=== PATIENT | male | born 2000 | race Caucasian/White ===

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

== ENCOUNTER 2019-04-19 01:44 | Emergency (ER) | payer OTHER, SELFPAY | END 2019-04-19 03:09 | disposition home or self-care (01) | LOC: ERS 01:44 | DX: L60.0 Ingrowing nail (principal); F17.220 Nicotine dependence, chewing tobacco, uncomplicated | CPT/HCPCS: 99281 ==

== ENCOUNTER 2025-06-14 10:37 | Emergency (ER) | payer SELFPAY ==
[2025-06-14 11:00] LABS: Bacteria/HPF None Seen HPF (None Seen); CAUTI Indications for Culture Dysuria,urgency,freq; Glucose, Urine (Dipstick) Normal (Negative); Leukocyte Negative Leu/uL (Negative); Protein, Urine (Dipstick) Negative (Neg-Trace); RBC/HPF None Seen HPF (0-3); Specific Gravity, Urine 1.003 (1.002-1.036); WBC/HPF None Seen HPF (0-3)
[2025-06-14 11:29] LABS: #Basophils Less than 0.03 10x3/uL (0.0-0.2); #Eosinophils Less than 0.03 10x3/uL (0.0-0.7); #Monocytes 0.81 10x3/uL (0.11-0.59); #Neutrophils 2.07 10x3/uL (1.40-6.50); %Basophils 0.4 % (0.0-1.0); %Eosinophils 0.0 % (0.0-10.0); %Lymphocytes 38.0 % (21.0-51.0); %Monocytes 17.3 % (0.0-10.0); %Neutrophils 44.1 % (42.0-75.0); Hematocrit 44.2 % (42.0-52.0); Hemoglobin 15.4 g/dL (14.0-18.0); Mean Corpuscular Hemoglobin 29.1 pg (27.0-31.0); Mean Corpuscular Volume 83.6 fL (78.0-98.0); Platelet Count 213 10x3/uL (130-400); Red Blood Cell (RBC) Count 5.29 mill/uL (4.70-6.10); White Blood Cell (WBC) Count 4.69 10x3/uL (4.8-10.8)
[2025-06-14 11:33] LABS: Urine Culture Reflex No No
[2025-06-14 11:47] LABS: ALT (SGPT) 12 U/L (Less than 45); AST (SGOT) 18 U/L (11-34); Albumin 4.6 g/dL (3.1-4.5); Alkaline Phosphatase 67 U/L (40-110); Anion Gap 15 mmol/L (10-20); BUN (Urea Nitrogen) 8 mg/dL (8.9-20.6); Bilirubin, Total 0.4 mg/dL (0.3-1.2); Calc. Creatinine Clearance 0 mL/min (70-130); Calcium 9.0 mg/dL (7.8-10.44); Carbon Dioxide 22 mmol/L (22-29); Chloride 105 mmol/L (98-107); Globulin 2.5 g/dL (2.4-3.5); Glucose 101 mg/dL (70-105); Potassium 3.1 mmol/L (3.5-5.1); Sodium 139 mmol/L (136-145)
[2025-06-15 06:05] LABS: Chlam.trachomatis by PCR,Urine Not Detected (NotDetected); GC N.gonorrhoeae PCR,UrineVOID Not Detected (NotDetected)
== END 2025-06-14 13:56 | disposition home or self-care (01) ==
LOC: ERS 10:37
DX: M54.2 Cervicalgia (principal); G89.29 Other chronic pain; R30.0 Dysuria; F17.290 Nicotine dependence, other tobacco product, uncomplicated
CPT/HCPCS: 74176; 80053; 81001; 85025; 87491; 87591